=== PATIENT | female | born 1935 | race Caucasian/White ===

== ENCOUNTER 2023-09-25 12:19 | Outpatient (REF) | payer OTHER, SELFPAY | END 2023-09-25 12:20 | disposition home or self-care (01) | LOC: NPINS 12:19 | PROVIDERS: PCP Family Medicine; Visit Provider Nurse Practitioner Gerontology | DX: E03.9 Hypothyroidism, unspecified (principal) | CPT/HCPCS: 84443 ==

== ENCOUNTER 2023-12-11 11:27 | Outpatient (REF) | payer OTHER, SELFPAY | END 2023-12-11 11:28 | disposition home or self-care (01) | LOC: NPINS 11:27 | PROVIDERS: PCP Family Medicine; Visit Provider Family Medicine | DX: E03.9 Hypothyroidism, unspecified (principal) | CPT/HCPCS: 84443 ==